=== PATIENT | female | born 1995 | race Caucasian/White ===

== ENCOUNTER 2020-11-10 18:39 | Emergency (ER) | payer OTHER ==
[~2020-11-10] VITALS: Ht 160 cm; Wt 68.0 kg
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
--- NOTE | 2020-11-10 19:22 | NUR ---
SENT TO CT VIA [facility].
--- NOTE | 2020-11-10 19:34 | NUR ---
RETURNED FROM CT
[2020-11-10] MEDS ORDERED: CYCL5TAB PO (20:16)
[2020-11-10] MEDS ORDERED: IBUP-1957 PO (20:17)
[2020-11-10 20:52] VITALS: BP 122/74
--- NOTE | 2020-11-10 20:52 | NUR ---
Patient discharged to home in stable condition. Written and verbal after care instructions given. Patient verbalizes understanding of instruction. Pt ambulated out of ED. VSS.
== END 2020-11-10 20:52 | disposition home or self-care (01) ==
LOC: ER 18:43
DX: R51.9 Headache, unspecified (principal); Z88.1 Allergy status to other antibiotic agents; V49.49XA Driver injured in collision with other motor vehicles in traffic accident, initial encounter; Y93.89 Activity, other specified; Y92.413 State road as the place of occurrence of the external cause; Y99.8 Other external cause status
CPT/HCPCS: 70450-TC; 72125-TC